=== PATIENT | male | born 1990 | race American Indian/Alaskan Native ===

== ENCOUNTER 2021-03-09 19:02 | Emergency (ER) | payer OTHER ==
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
[2021-03-09 19:13] VITALS: BP 143/75
[2021-03-09 19:24] LABS: Amphetamine Screen,Urine Negative; Benzodiazepines Screen,Urine Negative; Cannabinoid Screen,Urine Negative; Cocaine Screen,Urine Negative; Methadone Screen,Urine Negative; Opiate Screen,Urine Negative
== END 2021-03-09 19:40 | disposition home or self-care (01) ==
LOC: ED 19:02
DX: Z00.00 Encounter for general adult medical examination without abnormal findings (principal); Z79.899 Other long term (current) drug therapy; V87.7XXA Person injured in collision between other specified motor vehicles (traffic), initial encounter; Y93.89 Activity, other specified; Y92.488 Other paved roadways as the place of occurrence of the external cause; Y99.8 Other external cause status
CPT/HCPCS: 80307; 99283

== ENCOUNTER 2021-08-07 01:01 | Emergency (ER) | payer OTHER ==
[2021-08-07 01:53] VITALS: BP 122/81
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
[2021-08-07 03:58] LABS: Amphetamine Screen,Urine Negative; Benzodiazepines Screen,Urine Negative; Cannabinoid Screen,Urine Negative; Cocaine Screen,Urine Negative; Methadone Screen,Urine Negative; Opiate Screen,Urine Negative
== END 2021-08-07 03:59 | disposition home or self-care (01) ==
LOC: ED 01:01
DX: Z02.83 Encounter for blood-alcohol and blood-drug test (principal); Z79.899 Other long term (current) drug therapy
CPT/HCPCS: 36415; 80307; 80320; 99284; G0480